=== PATIENT | male | born 1965 | race Caucasian/White ===

== ENCOUNTER 2020-02-03 11:19 | Inpatient (IN) | payer BC ==
[~2020-02-03] VITALS: Ht 180.3 cm; Wt 76.0 kg
[~2020-02-03 11:19] MED LIST: ONDA8TAB9 PO
[2020-02-03] MEDS ORDERED: normal saline 1000ML IV soln IV ONE (12:55)
[2020-02-03] MEDS ORDERED: normal saline 1000ml 1,000 ML IV ONE (13:20)
[2020-02-03 13:49] LABS: BASOPHILS # (AUTO) 0.1 X10'3 (0-0.2); BASOPHILS % (AUTO) 0.5 % (0-1); EOSINOPHILS % (AUTO) 0 % (0-6); HEMATOCRIT 48.8 % (42.0-52.0); HEMOGLOBIN 16.2 g/dl (14.0-17.9); LYMPHOCYTES # (AUTO) 0.6 X10'3 (1.1-4.8); LYMPHOCYTES % (AUTO) 4.5 % (21-51); MEAN CORPUSCULAR HEMOGLOBIN 31.9 PG (27.0-31.0); MEAN CORPUSCULAR HGB CONC 33.3 g/dL (33.0-36.5); MEAN CORPUSCULAR VOLUME 95.8 FL (78-98); MEAN PLATELET VOLUME 8.5 FL (7.4-10.4); MONOCYTES # (AUTO) 1.2 X10'3 (0-0.9); MONOCYTES % (AUTO) 9.6 % (2-12); NEUTROPHILS # (AUTO) 10.7 X10'3 (1.8-7.7); NEUTROPHILS % (AUTO) 85.4 % (42-75); PLATELET COUNT 347 X10'3 (140-440); RED BLOOD COUNT 5.09 X10'6 (4.70-6.10); RED CELL DISTRIBUTION WIDTH 13.5 % (11.5-14.5); WHITE BLOOD COUNT 12.5 X10'3 (4.5-11.0)
[2020-02-03 13:55] LABS: CLARITY,URINE CLEAR (Clear); COLOR,URINE YELLOW (Yellow); GLUCOSE, URINE >=1000 mg/dl (Neg); KETONES,URINE >=80 mg/dl (Neg); LEUKOCYTE ESTERASE ,URINE NEGATIVE (Neg); NITRITES, URINE NEGATIVE (Neg); OCCULT BLOOD,URINE SMALL (Neg); PROTEIN,URINE 100 mg/dl (Neg); UROBILINOGEN,URINE 0.2 E.U/dL (0.2-1.0)
[2020-02-03 13:57] LABS: URINE AMPHETAMINE SCREEN NEGATIVE (Neg); URINE BARBITUATE SCREEN NEGATIVE (Neg); URINE BENZODIAZEPINES SCREEN NEGATIVE (Neg); URINE CANNABINOID SCREEN NEGATIVE (Neg); URINE COCAINE SCREEN NEGATIVE (Neg); URINE METHADONE SCREEN NEGATIVE (Neg); URINE OPIATE SCREEN NEGATIVE (Neg); URINE PHENCYCLIDINE SCREEN NEGATIVE (Neg)
[2020-02-03 14:01] LABS: UA COLLECTION TYPE CLN CATCH MIDSTREAM
[2020-02-03 14:14] LABS: MUCUS STRANDS FEW /LPF (Neg); SQUAMOUS EPITHELIAL CELL,UR MODERATE /LPF (FEW)
[2020-02-03 14:18] LABS: BACTERIA,URINE 1+ /HPF (Neg); RENAL CELLS, URINE FEW /HPF; WBC,URINE 0-4 /HPF (0-4)
[2020-02-03 14:19] LABS: ALANINE AMINOTRANSFERASE 20 U/L (12-78); ALBUMIN 3.2 G/DL (3.4-5.0); ALBUMIN/GLOBULIN RATIO 0.7 (1.1-1.5); ALKALINE PHOSPHATASE 128 IU/L (46-116); ANION GAP 22 (8-16); ASPARTATE AMINO TRANSFERASE 10 U/L (10-37); BILIRUBIN,TOTAL 0.7 MG/DL (0.1-1.0); BLOOD UREA NITROGEN 26 MG/DL (7-18); BUN/CREATININE RATIO 16.3 (5.4-32.0); CALCIUM 10.1 MG/DL (8.5-10.1); CHLORIDE 87 MMOL/L (99-107); LIPASE 126 U/L (73-393); POTASSIUM 5.6 MMOL/L (3.5-5.1); SODIUM 126 MMOL/L (135-145); eGFR 45 ML/MIN
[2020-02-03 14:19] LABS: YEAST FEW /HPF (NEGATIVE)
[2020-02-03 14:25] LABS: GLUCOSE 503 MG/DL (70-104)
[2020-02-03] MEDS ORDERED: insulin regular, human U-100 3ml vial - multi-dose IV PRN ×2 (15:15→16:10)
[2020-02-03 15:16] LABS: ABG BASE EXCESS -14.5 mmol/L (-2.0-3.0); ABG HCO3 12.5 mmol/L (22.0-26.0); ABG OXYGEN SATURATION 95.4 % (95-98); ABG PCO2 (T) 33.2 mmHg (35.0-45.0); ABG PH (T) 7.194 (7.350-7.450); ABG PO2 (T) 83.9 mmHg (83-108); ALLEN'S TEST POSITIVE; FCOHb 0.7 % (0.5-1.5); FMetHb 0.3 % (0.3-1.12); FO2Hb 94.4 % (94-100); TOTAL HEMOGLOBIN 13.7 G/dl (14.0-17.9)
[2020-02-03] MEDS ORDERED: Insulin Reg/NS 100units/100mL 100 ML IV SCH ×2 (15:18→16:07)
[2020-02-03 15:35] LABS: PHOSPHORUS 6.2 MG/DL (2.3-4.5)
[2020-02-03] MEDS ORDERED: potassium CL 20mEq in D5-1/2NS 1,000 ML IV PRN (16:07)
[2020-02-03] MEDS ORDERED: normal saline 1000ml 1,000 ML IV SCH (16:07)
[2020-02-03] MEDS ORDERED: sodium bicarbonate (8.4%) inj. 100 MEQ in dextrose 5% water 500ml 500 ML IV PRN (16:07)
[2020-02-03] MEDS ORDERED: sodium bicarbonate (8.4%) inj. 50 MEQ in dextrose 5% water 500ml 250 ML IV PRN (16:07)
[2020-02-03] MEDS ORDERED: acetaminophen 325mg tablet PO PRN ×2 (16:10)
[2020-02-03] MEDS ORDERED: potassium CL 10mEq/100ml bag 100 ML IV PRN ×4 (16:10)
[2020-02-03] MEDS ORDERED: Neutra Phos packet PO PRN (16:10)
[2020-02-03] MEDS ORDERED: sodium phosphate inj. 30 MMOL in dextrose 5%-water 250 ML IV PRN (16:10)
[2020-02-03] MEDS ORDERED: magnesium 4gm in 100ml NS 100 ML IV PRN (16:10)
[2020-02-03] MEDS ORDERED: HYDROcodone/acetaminophen 5mg/325mg tablet PO PRN (16:10)
[2020-02-03] MEDS ORDERED: magnesium 2GM in 50ml NS 50 ML IV PRN (16:10)
[2020-02-03] MEDS ORDERED: sodium phosphate inj. 15 MMOL in dextrose 5%-water 250 ML IV PRN (16:10)
[2020-02-03] MEDS ORDERED: ondansetron/PF 4mg/2ml inj IV PRN (16:10)
[2020-02-03] MEDS ORDERED: magnesium Cl slow-release 64mg tablet PO PRN (16:10)
[2020-02-03] MEDS ORDERED: potassium Cl 20 mEq SR tablet PO PRN ×4 (16:10)
[2020-02-03] MEDS: normal saline 1000ml 1,000 ML IV SCH ×2 (16:37→17:02)
[2020-02-03] MEDS ORDERED: vancomycin/NS 1 GM ADD-VANTAGE 250 ML IV SCH (17:00)
[2020-02-03 17:12] LABS: ALBUMIN 2.6 G/DL (3.4-5.0); ANION GAP 22 (8-16); BLOOD UREA NITROGEN 22 MG/DL (7-18); BUN/CREATININE RATIO 15.8 (5.4-32.0); CALCIUM 8.9 MG/DL (8.5-10.1); CHLORIDE 95 MMOL/L (99-107); CREATININE 1.39 MG/DL (0.60-1.10); GLUCOSE 389 MG/DL (70-104); POTASSIUM 4.9 MMOL/L (3.5-5.1); SODIUM 133 MMOL/L (135-145); TOTAL CARBON DIOXIDE 16.2 MMOL/L (24-32); eGFR 53 ML/MIN
--- NOTE | 2020-02-03 17:13 | NUR ---
Patient in room ED 9. I have received report from SALMA Monet and had the opportunity to ask questions, awaiting for patient's arrival to PCU.
[2020-02-03 17:21] LABS: HEMOGLOBIN A1C 11.2 % (4.5-6.2)
[2020-02-03 17:25] VITALS: BP 115/73
--- NOTE | 2020-02-03 17:25 | NUR ---
Patient arrived to room 3016A. Ambulated with standby assistance to bed. Oriented to room, bed locked and lowered, side rails up x2, call light within reach. 2 RN skin check complete, MRSA swab complete. First set of vitals; BP 115/73, HR 118, R 16, O2 99 RA, Pain 3/10 lower lip. All needs met at this time.
[2020-02-03 18:00] VITALS: BP 116/74
--- NOTE | 2020-02-03 18:21 | NUR ---
Problems reprioritized. Patient report given, questions answered & plan of care reviewed with SALMA Quarles. All patient needs met at this time.
--- NOTE | 2020-02-03 18:37 | NUR ---
Patient in room PCU 3016. I have received report from Sahra MARSH and had the opportunity to ask questions and assume patient care.
[2020-02-03] MEDS ORDERED: potassium Cl 20mEq in NS 1,000 ML IV SCH (19:00)
[2020-02-03] MEDS: heparin, porcine 5000 units/ml vial SQ SCH (19:30)
[2020-02-03] MEDS: K and/or MAG REPLACEMENT MC SCH (20:00)
[2020-02-03] MEDS ORDERED: K and/or MAG REPLACEMENT MC SCH (20:00)
[2020-02-03] MEDS: potassium CL 20mEq in D5-1/2NS 1,000 ML IV SCH (20:05)
[2020-02-03] MEDS ORDERED: temazepam 15mg capsule PO PRN (21:00)
[2020-02-03] MEDS: morphine 2 MG/ML inj. syringe IV PRN (21:18)
[2020-02-03] MEDS ORDERED: GLIP10TA11 (21:59)
[2020-02-03] MEDS ORDERED: PRAV10TA39 PO (21:59)
[2020-02-03] MEDS ORDERED: FLO44IN (21:59)
[2020-02-03] MEDS ORDERED: METF-436 PO (21:59)
[2020-02-03] MEDS ORDERED: LISI10TA4 PO (21:59)
[2020-02-03 22:00] VITALS: BP 111/72
[2020-02-04 01:29] LABS: BASOPHILS # (AUTO) 0.1 X10'3 (0-0.2); BASOPHILS % (AUTO) 0.9 % (0-1); EOSINOPHILS % (AUTO) 0.3 % (0-6); HEMATOCRIT 37.4 % (42.0-52.0); LYMPHOCYTES % (AUTO) 8.6 % (21-51); MEAN CORPUSCULAR HEMOGLOBIN 32.5 PG (27.0-31.0); MEAN CORPUSCULAR HGB CONC 34.9 g/dL (33.0-36.5); MEAN CORPUSCULAR VOLUME 93.3 FL (78-98); MEAN PLATELET VOLUME 7.3 FL (7.4-10.4); MONOCYTES # (AUTO) 1.5 X10'3 (0-0.9); MONOCYTES % (AUTO) 13.2 % (2-12); NEUTROPHILS # (AUTO) 8.8 X10'3 (1.8-7.7); PLATELET COUNT 268 X10'3 (140-440); RED CELL DISTRIBUTION WIDTH 13.5 % (11.5-14.5); WHITE BLOOD COUNT 11.5 X10'3 (4.5-11.0)
[2020-02-04 01:47] LABS: ALANINE AMINOTRANSFERASE 13 U/L (12-78); ALBUMIN 2.1 G/DL (3.4-5.0); ALBUMIN/GLOBULIN RATIO 0.6 (1.1-1.5); ALKALINE PHOSPHATASE 81 IU/L (46-116); ANION GAP 4 (8-16); ASPARTATE AMINO TRANSFERASE 8 U/L (10-37); BILIRUBIN,TOTAL 0.2 MG/DL (0.1-1.0); BLOOD UREA NITROGEN 15 MG/DL (7-18); BUN/CREATININE RATIO 14.4 (5.4-32.0); CALCIUM 8.1 MG/DL (8.5-10.1); CHLORIDE 104 MMOL/L (99-107); CHOL/HDL RATIO 3.2 (0.00-4.99); CHOLESTEROL 158 MG/DL (0-200); CREATININE 1.04 MG/DL (0.60-1.10); GLUCOSE 214 MG/DL (70-104); HDL CHOLESTEROL 50 MG/DL (35-60); LDL CHOLESTEROL 87 MG/DL (50-100); MAGNESIUM 1.5 MG/DL (1.5-2.4); PHOSPHORUS 2.3 MG/DL (2.3-4.5); POTASSIUM 4.5 MMOL/L (3.5-5.1); SODIUM 135 MMOL/L (135-145); TOTAL PROTEIN 5.5 G/DL (6.4-8.2); TRIGLYCERIDES 123 MG/DL (20-135); eGFR 75 ML/MIN
[2020-02-04 02:00] VITALS: BP 105/66
--- NOTE | 2020-02-04 02:05 | NUR ---
PAGER ID: [phone] MESSAGE: Misbah Us [id number]: Pt was admitted for DKA. Anion gap is now 4. Current blood glucose is 150. Can we start feeding and get him off the gtt? -Robina MARSH [phone]
[2020-02-04] MEDS ORDERED: MESSAGE TO PHARMACY PO ONE (02:10)
[2020-02-04] MEDS ORDERED: dextrose ORAL solution 15 GM/59 ML bottle PO PRN ×2 (02:10)
[2020-02-04] MEDS ORDERED: glucagon, human recombinant 1mg kit SUBCUT PRN (02:10)
[2020-02-04] MEDS ORDERED: dextrose 50%-water 50ml dispensing syringe IV PRN ×2 (02:10)
[2020-02-04] MEDS ORDERED: insulin glargine (Lantus) pen - multi-dose SQ SCH (02:23)
[2020-02-04] MEDS: potassium CL 20mEq in D5-1/2NS 1,000 ML IV SCH (02:29)
[2020-02-04] MEDS: insulin Lispro (HumaLOG) vial - multi-dose SQ SCH ×4 (02:40→18:36)
[2020-02-04] MEDS: insulin glargine (Lantus) pen - multi-dose SQ SCH ×2 (02:43→21:09)
[2020-02-04] MEDS: morphine 2 MG/ML inj. syringe IV PRN (04:07)
--- NOTE | 2020-02-04 06:26 | NUR ---
Problems reprioritized. Patient report given, questions answered & plan of care reviewed with Criss MARSH.
--- NOTE | 2020-02-04 06:30 | NUR ---
Patient in room PCU 3016. I have received report from Robina MARSH and had the opportunity to ask questions and assume patient care.
[2020-02-04 07:00] VITALS: BP 110/69
[2020-02-04] MEDS: nicotine 14mg patch - 24hr TD SCH (08:00)
[2020-02-04 08:06] LABS: ALBUMIN 2.1 G/DL (3.4-5.0); ANION GAP 4 (8-16); BLOOD UREA NITROGEN 14 MG/DL (7-18); BUN/CREATININE RATIO 16.7 (5.4-32.0); CALCIUM 8.5 MG/DL (8.5-10.1); CHLORIDE 101 MMOL/L (99-107); CREATININE 0.84 MG/DL (0.60-1.10); GLUCOSE 171 MG/DL (70-104); SODIUM 132 MMOL/L (135-145); TOTAL CARBON DIOXIDE 26.7 MMOL/L (24-32); eGFR > 90 ML/MIN
[2020-02-04] MEDS: heparin, porcine 5000 units/ml vial SQ SCH ×2 (08:12→20:24)
[2020-02-04] MEDS: K and/or MAG REPLACEMENT MC SCH ×2 (08:13→20:00)
[2020-02-04] MEDS: vancomycin/NS 1 GM ADD-VANTAGE 250 ML IV SCH ×2 (09:54→20:26)
[2020-02-04] MEDS ORDERED: LISI-604 PO (10:44)
[2020-02-04 11:00] VITALS: BP 106/69
[2020-02-04] MEDS: cefepime 1GM in D5W 50mL 50 ML IV SCH ×3 (11:21→23:48)
[2020-02-04] MEDS ORDERED: iohexol 300mg/ml 100ml inj. ONE (12:20)
--- NOTE | 2020-02-04 12:24 | NUR ---
Patient left unit for CT scan.
[2020-02-04] MEDS: MESSAGE TO NURSING PO SCH (12:25)
[2020-02-04] MEDS: lisinopril 5mg tablet PO SCH (16:42)
[2020-02-04] MEDS: atorvastatin 10mg tablet PO SCH (16:42)
--- NOTE | 2020-02-04 17:10 | NUR ---
Spoke with Dr. Woo on telephone, new order for patient to be NPO after midnight tonight for procedure to lower lip. Dr. Daniel notified of this and agrees with plan.
[2020-02-04 18:00] VITALS: BP 129/65
--- NOTE | 2020-02-04 18:05 | NUR ---
Orientee documentation: I have reviewed and agree with all interventions, assessments performed and documented by SALMA Pereira .
--- NOTE | 2020-02-04 18:17 | NUR ---
Problems reprioritized. Patient report given, questions answered & plan of care reviewed with SALMA Quarles.
--- NOTE | 2020-02-04 18:30 | NUR ---
Patient in room PCU 3016. I have received report from Criss MARSH and had the opportunity to ask questions and assume patient care.
--- NOTE | 2020-02-04 19:00 | NUR ---
DM/malnutrition/wound consults: Pt admit w/ DKA, HTN, hyperlipidemia, lower lip swelling suspected mass/abscess and cellulitis hx T2DM non-compliant does not take meds or follow diet at home per MD. DKA now resolved per MD. Initial A1C 11.2 then f/u A1C 12 hours later 13.4; unsure which is accurate though clearly elevated. Current wt 160kg likely error given pt wt hx 78-80kg and current wt pt stated. Needs scaled wt this admit for accurate wt hx; likely true BMI 22 not 49. Pt has no wounds noted w/ swollen/redenned lower lip, PO 100% avg initial meals meeting needs, no edema or significant weakness noted, and does not meet minimum malnutrition criteria at this time. At home diet "veggies and takeout" per EMR. LBM /. Will need DM ed prior to discharge. Will continue to monitor. Rec: 1. continue carb controlled diet 2. routine bowel care 3. scaled wts 4. DM ed prior to discharge Addendum: 02/04/20 at [address] Amended: Links added.
[2020-02-04] MEDS: budesonide 0.5mg/2ml UD nebule IH SCH (19:27)
[2020-02-04] MEDS: chlorhexidine gluconate 15ml Cup****oral rinse MM SCH (20:19)
[2020-02-04] MEDS: lactobacillus rhamnosus 10,000 MMU CELLS/CAPSULE PO SCH (20:19)
[2020-02-04 21:50] VITALS: BP 114/63
[2020-02-05] VITALS (14 sets, daily range): BP systolic 94–132; BP diastolic 55–85
[2020-02-05 06:05] LABS: BASOPHILS % (AUTO) 0.4 % (0-1); EOSINOPHILS # (AUTO) 0.1 X10'3 (0-0.9); EOSINOPHILS % (AUTO) 0.9 % (0-6); HEMATOCRIT 36.6 % (42.0-52.0); HEMOGLOBIN 12.8 g/dl (14.0-17.9); LYMPHOCYTES % (AUTO) 14.2 % (21-51); MEAN CORPUSCULAR HEMOGLOBIN 32.7 PG (27.0-31.0); MEAN CORPUSCULAR VOLUME 93.5 FL (78-98); MEAN PLATELET VOLUME 7.6 FL (7.4-10.4); MONOCYTES # (AUTO) 0.8 X10'3 (0-0.9); MONOCYTES % (AUTO) 11.5 % (2-12); PLATELET COUNT 267 X10'3 (140-440); RED BLOOD COUNT 3.91 X10'6 (4.70-6.10); RED CELL DISTRIBUTION WIDTH 13.1 % (11.5-14.5); WHITE BLOOD COUNT 6.9 X10'3 (4.5-11.0)
[2020-02-05 06:26] LABS: ALANINE AMINOTRANSFERASE 12 U/L (12-78); ALBUMIN/GLOBULIN RATIO 0.6 (1.1-1.5); ALKALINE PHOSPHATASE 74 IU/L (46-116); ANION GAP 5 (8-16); ASPARTATE AMINO TRANSFERASE 8 U/L (10-37); BILIRUBIN,TOTAL 0.3 MG/DL (0.1-1.0); BLOOD UREA NITROGEN 12 MG/DL (7-18); BUN/CREATININE RATIO 19.7 (5.4-32.0); CALCIUM 8.6 MG/DL (8.5-10.1); CHLORIDE 101 MMOL/L (99-107); CREATININE 0.61 MG/DL (0.60-1.10); GLUCOSE 194 MG/DL (70-104); MAGNESIUM 1.6 MG/DL (1.5-2.4); POTASSIUM 3.7 MMOL/L (3.5-5.1); SODIUM 136 MMOL/L (135-145); TOTAL CARBON DIOXIDE 29.7 MMOL/L (24-32); TOTAL PROTEIN 5.4 G/DL (6.4-8.2); eGFR > 90 ML/MIN
--- NOTE | 2020-02-05 06:30 | NUR ---
Patient in room PCU 3016. I have received report from SALMA MALAGON and had the opportunity to ask questions and assume patient care.
--- NOTE | 2020-02-05 06:34 | NUR ---
Problems reprioritized. Patient report given, questions answered & plan of care reviewed with Sonny RN.
[2020-02-05] MEDS: K and/or MAG REPLACEMENT MC SCH ×2 (08:00→20:00)
[2020-02-05] MEDS: nicotine 14mg patch - 24hr TD SCH (08:00)
[2020-02-05] MEDS: cefepime 1GM in D5W 50mL 50 ML IV SCH ×2 (08:03→16:30)
[2020-02-05] MEDS: atorvastatin 10mg tablet PO SCH (08:07)
[2020-02-05] MEDS: lactobacillus rhamnosus 10,000 MMU CELLS/CAPSULE PO SCH ×2 (08:07→20:09)
[2020-02-05] MEDS: lisinopril 5mg tablet PO SCH (08:07)
[2020-02-05] MEDS: heparin, porcine 5000 units/ml vial SQ SCH ×2 (08:09→20:12)
[2020-02-05] MEDS: insulin Lispro (HumaLOG) vial - multi-dose SQ SCH ×3 (08:14→22:11)
--- NOTE | 2020-02-05 08:18 | NUR ---
call to khalida in rx, will send oral rinse due 0800.
[2020-02-05] MEDS: budesonide 0.5mg/2ml UD nebule IH SCH ×2 (08:22→19:19)
[2020-02-05] MEDS ORDERED: VANCOMYCIN LEVEL IV ONE ×2 (08:30→16:30)
[2020-02-05] MEDS: vancomycin/NS 1 GM ADD-VANTAGE 250 ML IV SCH (09:21)
[2020-02-05] MEDS: chlorhexidine gluconate 15ml Cup****oral rinse MM SCH ×2 (09:24→20:10)
[2020-02-05] MEDS: MESSAGE TO NURSING PO SCH (12:25)
--- NOTE | 2020-02-05 14:12 | NUR ---
CLARA MARSH FROM OR CALLED. STATES "GOING TO COME PICK HIM UP FOR SURGERY. CALL REPORT TO RR".REPORT CALLED TO SALMA CARDENAS.
--- NOTE | 2020-02-05 14:19 | NUR ---
DM Consult: Pt seen by ALICE for written/verbal DM ed w/ RD contact information provided. Pt reports he is aware of dietary and medication non-compliance hx and would like to learn more. ALICE encouraged pt to attend CDE class once reopens as well and contact dietitian's office if further questions. Rec: 1. continue carb controlled diet 2. routine bowel care 3. scaled wts Addendum: 02/05/20 at [address] Amended: Links added. Addendum: 02/05/20 at [address] DM Consult: Pt seen by ALICE for written/verbal DM ed w/ RD contact information provided. Pt reports he is aware of dietary and medication non-compliance hx and would like to learn more. Pt reports has glucometer and test strips but does not use routinely. ALICE encouraged routine Glu checks, and pt to attend CDE class once reopens as well and contact dietitian's office if further questions.
[2020-02-05] MEDS ORDERED: BUPIVAcaine/PF 2.5mg/ml (0.25%) 10ml vial ONE (14:21)
[2020-02-05] MEDS ORDERED: LIDOcaine 1% W/epiNEPHrine 1:200,000 10ml vial ONE (14:21)
[2020-02-05] MEDS ORDERED: sevoflurane 250ml liquid IH ONE (14:58)
[2020-02-05] MEDS ORDERED: fentaNYL/PF 50MCG/1 ML 2ML syringe ONE (15:00)
[2020-02-05] MEDS ORDERED: propofol inj 20 ML IV ONE (15:02)
[2020-02-05] MEDS ORDERED: ringers solution, lacted 1,000 ML IV SCH (15:38)
[2020-02-05] MEDS ORDERED: morphine 4 MG/ML inj SYRINge IV PRN (15:40)
[2020-02-05] MEDS ORDERED: proCHLORperazine 10 MG/2 ml inj IV PRN (15:40)
[2020-02-05] MEDS ORDERED: ondansetron/PF 4mg/2ml inj IV PRN (15:40)
[2020-02-05] MEDS ORDERED: meperidine/PF 25mg/ml syringe IV PRN ×3 (15:40)
[2020-02-05] MEDS ORDERED: morphine 2 MG/ML inj. syringe IV PRN (15:40)
--- NOTE | 2020-02-05 15:51 | NUR ---
TELEPHONE REPORT TAKEN FROM SALMA DORSEY RR.
--- NOTE | 2020-02-05 16:59 | NUR ---
PAGER ID: [phone] MESSAGE: DR. VALADEZ. [id number], RETURNED FROM SURGERY. IS NPO. CAN HE HAVE A DIET ORDER? JEFFREY [id number], TY
[2020-02-05] MEDS ORDERED: VANCOMYCIN 1,500MG inj. 1,500 MG in normal saline 500ml IV soln 500 ML IV SCH (17:00)
--- NOTE | 2020-02-05 18:49 | NUR ---
Problems reprioritized. Patient report given, questions answered & plan of care reviewed with SALMA YOUNG.
--- NOTE | 2020-02-05 18:55 | NUR ---
Patient in room PCU 3016. I have received report from Sonny MARSH and had the opportunity to ask questions and assume patient care.
--- NOTE | 2020-02-05 20:01 | NUR ---
Pt did not receive clear liquid tray until 0.
[2020-02-05] MEDS: insulin glargine (Lantus) pen - multi-dose SQ SCH (22:12)
--- NOTE | 2020-02-05 22:23 | NUR ---
took pts 1900 blood sugar at 2200 due to tray being late. Treated blood sugar per protocol.
[2020-02-06] MEDS: cefepime 1GM in D5W 50mL 50 ML IV SCH ×4 (00:21→23:28)
[2020-02-06 02:00] VITALS: BP 118/72
[2020-02-06] MEDS: VANCOMYCIN 1,500MG inj. 1,500 MG in normal saline 500ml IV soln 500 ML IV SCH ×2 (05:11→17:35)
[2020-02-06 05:32] LABS: BASOPHILS % (AUTO) 0.7 % (0-1); EOSINOPHILS # (AUTO) 0.1 X10'3 (0-0.9); HEMATOCRIT 35.1 % (42.0-52.0); HEMOGLOBIN 12.4 g/dl (14.0-17.9); LYMPHOCYTES # (AUTO) 0.9 X10'3 (1.1-4.8); MEAN CORPUSCULAR HEMOGLOBIN 32.8 PG (27.0-31.0); MEAN CORPUSCULAR HGB CONC 35.3 g/dL (33.0-36.5); MEAN CORPUSCULAR VOLUME 93.1 FL (78-98); MEAN PLATELET VOLUME 7.4 FL (7.4-10.4); MONOCYTES # (AUTO) 0.8 X10'3 (0-0.9); MONOCYTES % (AUTO) 13.6 % (2-12); NEUTROPHILS # (AUTO) 4.1 X10'3 (1.8-7.7); NEUTROPHILS % (AUTO) 69.7 % (42-75); PLATELET COUNT 282 X10'3 (140-440); RED BLOOD COUNT 3.77 X10'6 (4.70-6.10); RED CELL DISTRIBUTION WIDTH 13.1 % (11.5-14.5); WHITE BLOOD COUNT 5.8 X10'3 (4.5-11.0)
[2020-02-06 06:00] VITALS: BP 113/72
[2020-02-06 06:09] LABS: ALANINE AMINOTRANSFERASE 12 U/L (12-78); ALBUMIN/GLOBULIN RATIO 0.6 (1.1-1.5); ALKALINE PHOSPHATASE 76 IU/L (46-116); ANION GAP 3 (8-16); ASPARTATE AMINO TRANSFERASE 10 U/L (10-37); BILIRUBIN,TOTAL 0.4 MG/DL (0.1-1.0); BLOOD UREA NITROGEN 10 MG/DL (7-18); BUN/CREATININE RATIO 14.7 (5.4-32.0); CALCIUM 8.4 MG/DL (8.5-10.1); CHLORIDE 101 MMOL/L (99-107); CREATININE 0.68 MG/DL (0.60-1.10); GLUCOSE 195 MG/DL (70-104); MAGNESIUM 1.6 MG/DL (1.5-2.4); POTASSIUM 3.5 MMOL/L (3.5-5.1); SODIUM 137 MMOL/L (135-145); TOTAL CARBON DIOXIDE 32.8 MMOL/L (24-32); TOTAL PROTEIN 5.4 G/DL (6.4-8.2); eGFR > 90 ML/MIN
--- NOTE | 2020-02-06 06:14 | NUR ---
Problems reprioritized. Patient report given, questions answered & plan of care reviewed with Raymond MARSH and Lois MARSH.
--- NOTE | 2020-02-06 06:20 | NUR ---
Patient in room PCU 3016. I have received report from Guerita MARSH and had the opportunity to ask questions and assume patient care.
[2020-02-06] MEDS: heparin, porcine 5000 units/ml vial SQ SCH ×2 (07:39→19:57)
[2020-02-06] MEDS: lactobacillus rhamnosus 10,000 MMU CELLS/CAPSULE PO SCH ×2 (07:39→19:57)
[2020-02-06] MEDS: chlorhexidine gluconate 15ml Cup****oral rinse MM SCH ×2 (07:40→19:57)
[2020-02-06] MEDS: lisinopril 5mg tablet PO SCH (07:40)
[2020-02-06] MEDS: atorvastatin 10mg tablet PO SCH (07:40)
[2020-02-06] MEDS: nicotine 14mg patch - 24hr TD SCH (07:41)
[2020-02-06] MEDS: K and/or MAG REPLACEMENT MC SCH ×2 (08:00→19:58)
[2020-02-06] MEDS: budesonide 0.5mg/2ml UD nebule IH SCH ×2 (08:31→19:37)
[2020-02-06] MEDS: insulin Lispro (HumaLOG) vial - multi-dose SQ SCH ×3 (09:20→18:57)
[2020-02-06 11:00] VITALS: BP 93/61
--- NOTE | 2020-02-06 12:06 | NUR ---
PAGER ID: [phone] MESSAGE: Re: Misbah Us, Room: [facility]. Before Pt discharges can you sign a work release form for Pt. Thank you. -[facility] #[id number] Dr. Daniel paged concerning work release form for Pt.
[2020-02-06 15:00] VITALS: BP 100/65
[2020-02-06 18:00] VITALS: BP 95/57
--- NOTE | 2020-02-06 18:00 | NUR ---
Problems reprioritized. Patient report given, questions answered & plan of care reviewed with Desiree MARSH.
--- NOTE | 2020-02-06 18:38 | NUR ---
Patient in room U 3016. I have received report from SALMA Andrade and had the opportunity to ask questions and assume patient care. Addendum: 02/06/20 at 1842 by Desiree Sauer RN Amended: Links added.
[2020-02-06] MEDS: insulin glargine (Lantus) pen - multi-dose SQ SCH (21:32)
[2020-02-06 23:51] VITALS: BP 96/60
[2020-02-07 04:04] VITALS: BP 102/69
[2020-02-07] MEDS ORDERED: VANCOMYCIN LEVEL IV ONE (04:30)
[2020-02-07 05:13] LABS: BASOPHILS % (AUTO) 1.1 % (0-1); EOSINOPHILS # (AUTO) 0.2 X10'3 (0-0.9); HEMATOCRIT 35.2 % (42.0-52.0); HEMOGLOBIN 12.5 g/dl (14.0-17.9); LYMPHOCYTES # (AUTO) 1.1 X10'3 (1.1-4.8); LYMPHOCYTES % (AUTO) 25.6 % (21-51); MEAN CORPUSCULAR HEMOGLOBIN 33.1 PG (27.0-31.0); MEAN CORPUSCULAR HGB CONC 35.4 g/dL (33.0-36.5); MEAN CORPUSCULAR VOLUME 93.5 FL (78-98); MEAN PLATELET VOLUME 7.2 FL (7.4-10.4); MONOCYTES # (AUTO) 0.6 X10'3 (0-0.9); MONOCYTES % (AUTO) 14.2 % (2-12); NEUTROPHILS # (AUTO) 2.4 X10'3 (1.8-7.7); NEUTROPHILS % (AUTO) 55.1 % (42-75); PLATELET COUNT 306 X10'3 (140-440); RED BLOOD COUNT 3.77 X10'6 (4.70-6.10); RED CELL DISTRIBUTION WIDTH 13.3 % (11.5-14.5); WHITE BLOOD COUNT 4.3 X10'3 (4.5-11.0)
[2020-02-07] MEDS: VANCOMYCIN 1,500MG inj. 1,500 MG in normal saline 500ml IV soln 500 ML IV SCH (05:13)
--- NOTE | 2020-02-07 05:14 | NUR ---
clarified rate of 1500mg Vanco to be ran at 250 ml/hr to administer over 2 hours with pharmacy
[2020-02-07 05:33] LABS: ALANINE AMINOTRANSFERASE 9 U/L (12-78); ALBUMIN 1.9 G/DL (3.4-5.0); ALBUMIN/GLOBULIN RATIO 0.6 (1.1-1.5); ALKALINE PHOSPHATASE 73 IU/L (46-116); ANION GAP 6 (8-16); ASPARTATE AMINO TRANSFERASE 10 U/L (10-37); BILIRUBIN,TOTAL 0.4 MG/DL (0.1-1.0); BLOOD UREA NITROGEN 8 MG/DL (7-18); BUN/CREATININE RATIO 12.1 (5.4-32.0); CALCIUM 8.6 MG/DL (8.5-10.1); CHLORIDE 102 MMOL/L (99-107); CREATININE 0.66 MG/DL (0.60-1.10); GLUCOSE 224 MG/DL (70-104); MAGNESIUM 1.6 MG/DL (1.5-2.4); POTASSIUM 3.7 MMOL/L (3.5-5.1); SODIUM 139 MMOL/L (135-145); TOTAL PROTEIN 5.1 G/DL (6.4-8.2); VANCOMYCIN,TROUGH 11.9 UG/ML (6.0-14.0); eGFR > 90 ML/MIN
[2020-02-07 06:00] VITALS: BP 107/71
--- NOTE | 2020-02-07 06:29 | NUR ---
Patient in room PCU 3016. I have received report from SALMA Bullock and had the opportunity to ask questions and assume patient care. Patient asleep in bed and in no acute distress.
--- NOTE | 2020-02-07 06:30 | NUR ---
Patient in room PCU 3016. I have received report from SALMA Bullock and had the opportunity to ask questions and assume patient care.
--- NOTE | 2020-02-07 07:53 | NUR ---
Paged Dr. Daniel regarding MRSA in lower lip. PAGER ID: [phone] MESSAGE: [id number]. Misbah Us. MRSA in wound in lower lip. Thank you. Emily MARSH x [phone]
[2020-02-07] MEDS: nicotine 14mg patch - 24hr TD SCH (08:00)
[2020-02-07] MEDS: K and/or MAG REPLACEMENT MC SCH (08:00)
[2020-02-07] MEDS: cefepime 1GM in D5W 50mL 50 ML IV SCH (08:00)
[2020-02-07] MEDS: lisinopril 5mg tablet PO SCH (08:00)
[2020-02-07] MEDS: lactobacillus rhamnosus 10,000 MMU CELLS/CAPSULE PO SCH (08:00)
[2020-02-07] MEDS: heparin, porcine 5000 units/ml vial SQ SCH (08:00)
[2020-02-07] MEDS: chlorhexidine gluconate 15ml Cup****oral rinse MM SCH (08:00)
[2020-02-07] MEDS: atorvastatin 10mg tablet PO SCH (08:00)
[2020-02-07] MEDS: budesonide 0.5mg/2ml UD nebule IH SCH (08:17)
[2020-02-07] MEDS: insulin Lispro (HumaLOG) vial - multi-dose SQ SCH ×2 (09:52→12:37)
--- NOTE | 2020-02-07 10:38 | NUR ---
Administered medications at bedside with scanner. Did not file and save on computer after administration.
[2020-02-07] MEDS ORDERED: LINE600T11 PO (10:50)
[2020-02-07] MEDS ORDERED: LACT1CAP26 PO (10:50)
[2020-02-07] MEDS ORDERED: CHLO473M2 MM (10:50)
[2020-02-07 11:54] VITALS: BP 91/59
[2020-02-07] MEDS ORDERED: VANCOMYCIN 1,500MG inj. 1,500 MG in normal saline 500ml IV soln 500 ML IV SCH (13:00)
--- NOTE | 2020-02-07 13:38 | NUR ---
Patient vital signs stable per md orders. Patient's medications were phoned to [facility] pharmacy on [address]. Instructed upon follow up instructions and follow up appointment with his PCP and Dr. Woo. Diabetic survival skills given and educated upon. Removed right PIV in forearm, as SALMA Beal removed right upper arm PIV. Cannula's intact. All patient's belongings gathered and taken on persons. Patient wheeled to lobby accompanied by RN. Patient assisted into private vehicle and was subsequently driven away.
--- NOTE | 2020-02-07 13:58 | NUR ---
[place] Medication Administration: For this medication-pass time frame, all medication were reviewed, dispensed, administered and documented per hospital policy by SALMA Abreu.
--- NOTE | 2020-02-07 13:59 | NUR ---
Orientee documentation: I have reviewed and agree with all interventions, assessments performed and documented by SALMA Abreu.
--- NOTE | 2020-02-07 15:52 | NUR ---
PAGER ID: [phone] MESSAGE: Abeba Misbah. Patient's zyvox isn't covered by his insurance and not available. Is there another med you would like for me to call in for him? Thank you. Emily MARSH x [phone] Addendum: 02/07/20 at 1604 by Emily Mauricio RN Dr. Daniel transmitted orders for clindamycin to his pharmacy. Called patient to inform him of the change.
[2020-02-07] MEDS ORDERED: CLIN150C2 PO (15:57)
[2020-02-08] MEDS ORDERED: VANCOMYCIN LEVEL IV ONE (04:30)
== END 2020-02-07 13:14 | disposition home or self-care (01) | DRG 137 ==
LOC: ER 11:19 → ED HOLD 16:07 → PCU 3S 17:39
PROVIDERS: ADMIT Internal Medicine; ATTEND Family Medicine
PROC: 0C90XZZ Drainage of Upper Lip, External Approach (ICD-10-PCS; principal; 2020-02-04)
PROC: BN251ZZ Computerized Tomography (CT Scan) of Facial Bones using Low Osmolar Contrast (ICD-10-PCS; 2020-02-04)
PROC: 0C91XZZ Drainage of Lower Lip, External Approach (ICD-10-PCS; 2020-02-05)
DX: K13.0 Diseases of lips (principal); E11.10 Type 2 diabetes mellitus with ketoacidosis without coma; B95.62 Methicillin resistant Staphylococcus aureus infection as the cause of diseases classified elsewhere; E11.22 Type 2 diabetes mellitus with diabetic chronic kidney disease; E78.5 Hyperlipidemia, unspecified; I12.9 Hypertensive chronic kidney disease with stage 1 through stage 4 chronic kidney disease, or unspecified chronic kidney disease; N18.3 Chronic kidney disease, stage 3 (moderate); F17.220 Nicotine dependence, chewing tobacco, uncomplicated; Z91.14 Patient's other noncompliance with medication regimen; Z71.6 Tobacco abuse counseling
CPT/HCPCS: 99291; Z7506; 36415; 36600; 70487; 71045; 80048; 80053; 80061; 80202; 80305; 81001; 82009; 82803; 82948; 83036; 83605; 83690; 83735; 84100; 84145; 85018; 85025; 87040; 87070; 87077; 87081; 87186; 93005; 94640; 94760; A4618; A7000; G0378; J0692; J1644; J1815; J2270; J2704; J3010; J3370; J3480; J3490; J7030; J7040; J7626; Q9967

== ENCOUNTER 2020-02-12 08:28 | Outpatient (CLI) | payer BC ==
[~2020-02-12 08:28] MED LIST changes: +CHLO473M2 MM; +CLIN150C2 PO; +FLO44IN; +GLIP10TA11; +LACT1CAP26 PO; +LISI-604 PO; +METF-436 PO; -ONDA8TAB9 PO; +PRAV10TA39 PO
== END 2020-02-12 09:31 | disposition home or self-care (01) ==
LOC: WOUND CARE 08:28
PROVIDERS: ATTEND Nurse Practitioner Family
DX: E11.622 Type 2 diabetes mellitus with other skin ulcer (principal); L98.491 Non-pressure chronic ulcer of skin of other sites limited to breakdown of skin; K12.2 Cellulitis and abscess of mouth; E11.65 Type 2 diabetes mellitus with hyperglycemia; E11.10 Type 2 diabetes mellitus with ketoacidosis without coma; E11.22 Type 2 diabetes mellitus with diabetic chronic kidney disease; I12.9 Hypertensive chronic kidney disease with stage 1 through stage 4 chronic kidney disease, or unspecified chronic kidney disease; N18.3 Chronic kidney disease, stage 3 (moderate); B95.62 Methicillin resistant Staphylococcus aureus infection as the cause of diseases classified elsewhere; E78.5 Hyperlipidemia, unspecified; F17.220 Nicotine dependence, chewing tobacco, uncomplicated; Z71.6 Tobacco abuse counseling; Z86.14 Personal history of Methicillin resistant Staphylococcus aureus infection
CPT/HCPCS: 36416; 82948; G0463

== ENCOUNTER 2020-02-19 08:05 | Outpatient (CLI) | payer BC | END 2020-02-19 08:54 | disposition home or self-care (01) | LOC: WOUND CARE 08:05 | PROVIDERS: ATTEND Nurse Practitioner Family | DX: E11.622 Type 2 diabetes mellitus with other skin ulcer (principal); L98.491 Non-pressure chronic ulcer of skin of other sites limited to breakdown of skin; K12.2 Cellulitis and abscess of mouth; E11.65 Type 2 diabetes mellitus with hyperglycemia; E11.10 Type 2 diabetes mellitus with ketoacidosis without coma; E11.22 Type 2 diabetes mellitus with diabetic chronic kidney disease; I12.9 Hypertensive chronic kidney disease with stage 1 through stage 4 chronic kidney disease, or unspecified chronic kidney disease; N18.3 Chronic kidney disease, stage 3 (moderate); B95.62 Methicillin resistant Staphylococcus aureus infection as the cause of diseases classified elsewhere; E78.5 Hyperlipidemia, unspecified; F17.220 Nicotine dependence, chewing tobacco, uncomplicated; Z71.6 Tobacco abuse counseling; Z86.14 Personal history of Methicillin resistant Staphylococcus aureus infection | CPT/HCPCS: 36416; 82948; G0463 ==

== ENCOUNTER 2020-02-26 08:05 | Outpatient (CLI) | payer BC | END 2020-02-26 08:35 | disposition home or self-care (01) | LOC: WOUND CARE 08:05 | PROVIDERS: ATTEND Nurse Practitioner Family | DX: E11.622 Type 2 diabetes mellitus with other skin ulcer (principal); L98.491 Non-pressure chronic ulcer of skin of other sites limited to breakdown of skin; K12.2 Cellulitis and abscess of mouth; E11.65 Type 2 diabetes mellitus with hyperglycemia; E11.10 Type 2 diabetes mellitus with ketoacidosis without coma; E11.22 Type 2 diabetes mellitus with diabetic chronic kidney disease; I12.9 Hypertensive chronic kidney disease with stage 1 through stage 4 chronic kidney disease, or unspecified chronic kidney disease; N18.3 Chronic kidney disease, stage 3 (moderate); B95.62 Methicillin resistant Staphylococcus aureus infection as the cause of diseases classified elsewhere; E78.5 Hyperlipidemia, unspecified; F17.220 Nicotine dependence, chewing tobacco, uncomplicated; Z71.6 Tobacco abuse counseling; Z86.14 Personal history of Methicillin resistant Staphylococcus aureus infection | CPT/HCPCS: 82948; G0463 ==